=== PATIENT | female | born 1985 | race Caucasian/White ===

== ENCOUNTER 2023-01-23 00:06 | Emergency (ER) | payer MEDICAID ==
[~2023-01-23] VITALS: Ht 170.2 cm; Wt 75.0 kg
[~2023-01-23 00:06] MED LIST: MAGN400C PO; PREN-125 PO
--- NOTE | 2023-01-23 00:11 | NUR ---
LIGHTS OFF, HAVING HER CONCENTRATE ON APPROPRIATE BREATHING. O2 2LNC
[2023-01-23] MEDS ORDERED: LORazepam 2 mg/ml vial IM STA (00:16)
--- NOTE | 2023-01-23 00:17 | NUR ---
DR MENSAH AT BS TO ASSESS PT. IM ATIVAN 2 MG ORDERED.
--- NOTE | 2023-01-23 00:48 | NUR ---
got patient breathing easily through guided imagery and breathing techniques with muscle relaxation and holding non rebreather to face not hooked to oxygen. Pt trying to sleep now. Warmed blankets on pt. Mom at her side.
--- NOTE | 2023-01-23 01:05 | NUR ---
she got up to the bathroom, and now she is sitting EOB with NRB mask. She is trying to self regulate.
[2023-01-23] MEDS ORDERED: metoclopramide 10mg tablet PO ONE (01:40)
[2023-01-23] MEDS ORDERED: LIDOcaine Viscous 15ml cup MM ONE (01:55)
[2023-01-23] MEDS ORDERED: mag hydrox/Alum hydrox/simeth 30ml oral suspension PO ONE (01:55)
[2023-01-23] MEDS ORDERED: famotidine 20mg tablet PO ONE (01:55)
--- NOTE | 2023-01-23 01:57 | NUR ---
she is doing better, but did develop heartburn. Gave her a GI cocktail. Her breathing has returned to normal.
[2023-01-23] MEDS ORDERED: LORazepam 2 mg/ml vial IV ONE (02:05)
[2023-01-23] MEDS ORDERED: diphenhydrAMINE 50 mg/ml inj IV ONE (02:05)
[2023-01-23 02:42] LABS: D-DIMER 0.47 MG/L FEU (0-0.50)
[2023-01-23 02:47] LABS: BASOPHILS % (AUTO) 0.2 % (0-1); EOSINOPHILS % (AUTO) 0.8 % (0-6); HEMATOCRIT 37.9 % (35.0-45.0); LYMPHOCYTES # (AUTO) 2.1 X10'3 (1.1-4.8); LYMPHOCYTES % (AUTO) 35.7 % (21-51); MEAN CORPUSCULAR HEMOGLOBIN 29.5 PG (27.0-31.0); MEAN CORPUSCULAR HGB CONC 34.2 g/dL (33.0-36.5); MEAN CORPUSCULAR VOLUME 86.2 FL (78-98); MEAN PLATELET VOLUME 7.9 FL (7.4-10.4); MONOCYTES # (AUTO) 0.5 X10'3 (0-0.9); MONOCYTES % (AUTO) 7.7 % (2-12); NEUTROPHILS # (AUTO) 3.3 X10'3 (1.8-7.7); NEUTROPHILS % (AUTO) 55.6 % (42-75); PLATELET COUNT 270 X10'3 (140-440); RED CELL DISTRIBUTION WIDTH 13.3 % (11.5-14.5)
[2023-01-23 02:48] LABS: ALANINE AMINOTRANSFERASE 20 U/L (12-78); ALBUMIN 4.3 G/DL (3.4-5.0); ALBUMIN/GLOBULIN RATIO 1.2 (1.1-1.5); ALKALINE PHOSPHATASE 54 IU/L (46-116); ANION GAP 19 (8-16); ASPARTATE AMINO TRANSFERASE 18 U/L (10-37); BILIRUBIN,TOTAL 0.3 MG/DL (0.1-1.0); BLOOD UREA NITROGEN 13 MG/DL (7-18); BUN/CREATININE RATIO 13.5 (10.0-20.0); CALCIUM 10.1 MG/DL (8.5-10.1); CHLORIDE 106 MMOL/L (99-107); CREATININE 0.96 MG/DL (0.40-0.90); GLUCOSE 114 MG/DL (70-104); POTASSIUM 3.2 MMOL/L (3.5-5.1); SODIUM 144 MMOL/L (135-145); TOTAL CARBON DIOXIDE 18.6 MMOL/L (24-32); eGFR 65 ML/MIN
[2023-01-23 02:50] LABS: CLARITY,URINE CLEAR (Clear); COLOR,URINE YELLOW (Yellow); GLUCOSE, URINE NEGATIVE (Neg); KETONES,URINE TRACE mg/dl (Neg); LEUKOCYTE ESTERASE ,URINE NEGATIVE (Neg); NITRITES, URINE NEGATIVE (Neg); OCCULT BLOOD,URINE NEGATIVE (Neg); PH,URINE 6.5 (4.8-8.0); PROTEIN,URINE NEGATIVE (Neg); UROBILINOGEN,URINE 0.2 E.U/dL (0.2-1.0)
[2023-01-23 02:57] LABS: ETHANOL 0.145 GM/DL (0.0-0.010)
[2023-01-23 02:57] LABS: UA COLLECTION TYPE CLN CATCH MIDSTREAM
[2023-01-23] MEDS ORDERED: POTASSIUM BICARB 20meq eff tab 20 MEQ TABLET.EFF PO ONE (03:00)
[2023-01-23] MEDS ORDERED: normal saline 1000ml 1,000 ML IV ONE (03:00)
[2023-01-23 03:05] LABS: URINE AMPHETAMINE SCREEN NEGATIVE (Neg); URINE BARBITUATE SCREEN NEGATIVE (Neg); URINE BENZODIAZEPINES SCREEN NEGATIVE (Neg); URINE CANNABINOID SCREEN NEGATIVE (Neg); URINE COCAINE SCREEN NEGATIVE (Neg); URINE METHADONE SCREEN NEGATIVE (Neg); URINE OPIATE SCREEN NEGATIVE (Neg); URINE PHENCYCLIDINE SCREEN NEGATIVE (Neg)
[2023-01-23 04:01] VITALS: BP 112/72
[2023-01-23 05:02] LABS: URINE HCG NEGATIVE (NEG)
== END 2023-01-23 04:02 | disposition home or self-care (01) ==
LOC: ER 00:07
DX: F41.9 Anxiety disorder, unspecified (principal); Z20.822 Contact with and (suspected) exposure to COVID-19; E86.0 Dehydration; E11.9 Type 2 diabetes mellitus without complications; Z88.5 Allergy status to narcotic agent; Z91.040 Latex allergy status; Z88.8 Allergy status to other drugs, medicaments and biological substances
CPT/HCPCS: 36415; 71045; 80053; 80305; 80320; 81003; 81025; 83880; 84145; 84484; 85025; 85379; 87811; 93005; 96361; 96372; 96374; 96375; 99285; J1200; J2060; J7030

== ENCOUNTER 2023-09-30 08:17 | Emergency (ER) | payer MEDICAID ==
[~2023-09-30] VITALS: Ht 170.2 cm; Wt 100.8 kg
[2023-09-30 08:18] VITALS: TEMP 98.6
[2023-09-30 08:43] LABS: BILIRUBIN,URINE NEGATIVE (Neg); CLARITY,URINE SLIGHTLY CLOUDY (Clear); COLOR,URINE YELLOW (Yellow); GLUCOSE, URINE NEGATIVE (Neg); KETONES,URINE NEGATIVE (Neg); LEUKOCYTE ESTERASE ,URINE NEGATIVE (Neg); NITRITES, URINE NEGATIVE (Neg); OCCULT BLOOD,URINE TRACE-INTACT (Neg); PH,URINE 5.5 (4.8-8.0); PROTEIN,URINE NEGATIVE (Neg); UROBILINOGEN,URINE 0.2 E.U/dL (0.2-1.0)
[2023-09-30 08:44] LABS: URINE HCG NEGATIVE (NEG)
[2023-09-30 08:49] LABS: SQUAMOUS EPITHELIAL CELL,UR MANY /LPF (FEW); UA COLLECTION TYPE CLN CATCH MIDSTREAM
[2023-09-30 08:50] LABS: BACTERIA,URINE 1+ /HPF (Neg); MUCUS STRANDS FEW /LPF (Neg); RBC,URINE 0-2 /HPF (0-2); WBC,URINE 0-4 /HPF (0-4)
[2023-09-30 09:19] LABS: BASOPHILS % (AUTO) 0.1 % (0-1); EOSINOPHILS # (AUTO) 0.2 X10'3 (0-0.9); EOSINOPHILS % (AUTO) 2.3 % (0-6); HEMATOCRIT 37.2 % (35.0-45.0); HEMOGLOBIN 12.5 g/dl (12.0-16.0); LYMPHOCYTES # (AUTO) 1.8 X10'3 (1.1-4.8); LYMPHOCYTES % (AUTO) 27.8 % (21-51); MEAN CORPUSCULAR HEMOGLOBIN 29.5 PG (27.0-31.0); MEAN CORPUSCULAR HGB CONC 33.7 g/dL (33.0-36.5); MEAN CORPUSCULAR VOLUME 87.4 FL (78-98); MEAN PLATELET VOLUME 7.7 FL (7.4-10.4); MONOCYTES # (AUTO) 0.5 X10'3 (0-0.9); MONOCYTES % (AUTO) 7.6 % (2-12); NEUTROPHILS # (AUTO) 4.1 X10'3 (1.8-7.7); NEUTROPHILS % (AUTO) 62.2 % (42-75); PLATELET COUNT 237 X10'3 (140-440); RED BLOOD COUNT 4.26 X10'6 (4.20-5.60); RED CELL DISTRIBUTION WIDTH 12.4 % (11.5-14.5); WHITE BLOOD COUNT 6.5 X10'3 (4.5-11.0)
[2023-09-30] MEDS: ondansetron 4mg rapidly disintigrating tab PO ONE (09:38)
[2023-09-30] MEDS: ketorolac trometh. 30mg/ml inj. IM ONE (09:39)
[2023-09-30] MEDS: normal saline 1000ML IV soln IVB ONE (09:39)
[2023-09-30 09:42] LABS: ALANINE AMINOTRANSFERASE 21 U/L (12-78); ALKALINE PHOSPHATASE 54 IU/L (46-116); ANION GAP 9 (8-16); ASPARTATE AMINO TRANSFERASE 10 U/L (10-37); BILIRUBIN,TOTAL 0.4 MG/DL (0.1-1.0); BLOOD UREA NITROGEN 13 MG/DL (7-18); BUN/CREATININE RATIO 14.4 (10.0-20.0); C-REACTIVE PROTEIN 3.01 MG/DL (0.0-0.5); CALCIUM 9.2 MG/DL (8.5-10.1); CHLORIDE 103 MMOL/L (99-107); GLUCOSE 96 MG/DL (70-104); LIPASE 25 U/L (16-77); POTASSIUM 3.8 MMOL/L (3.5-5.1); SODIUM 139 MMOL/L (135-145); TOTAL CARBON DIOXIDE 26.8 MMOL/L (24-32); TOTAL PROTEIN 8.1 G/DL (6.4-8.2); eCRCL 82 ML/MIN; eGFR 70 ML/MIN
[2023-09-30 09:48] VITALS: BP 119/71; PULSE 88; O2SAT 98
[2023-09-30] MEDS: diphenhydrAMINE 50 mg/ml inj IV ONE (10:23)
[2023-09-30] MEDS: dexamethasone 4mg/ml inj IV SCH (10:24)
[2023-09-30 10:44] VITALS: RESP 17
[2023-09-30] MEDS: acetaminophen 325mg tablet PO ONE (11:17)
== END 2023-09-30 11:23 | disposition home or self-care (01) ==
LOC: ER 08:17
DX: B34.9 Viral infection, unspecified (principal); Z20.822 Contact with and (suspected) exposure to COVID-19; R51.9 Headache, unspecified; R30.0 Dysuria; R53.81 Other malaise; E11.9 Type 2 diabetes mellitus without complications; Z88.5 Allergy status to narcotic agent; Z91.040 Latex allergy status; Z88.8 Allergy status to other drugs, medicaments and biological substances; Z79.899 Other long term (current) drug therapy
CPT/HCPCS: 36415; 71045; 80053; 81001; 81025; 83605; 83690; 84145; 85025; 86140; 87040; 87502; 87503; 87811; 96361; 96372; 96374; 96375; 99284; J1100; J1200; J1885; J7030

== ENCOUNTER 2024-03-06 08:28 | Outpatient (CLI) | payer MEDICAID | END 2024-03-06 23:59 | disposition home or self-care (01) | LOC: RAD 08:28 | PROVIDERS: ATTEND Neuromusculoskeletal Medicine & OMM | DX: G43.011 Migraine without aura, intractable, with status migrainosus (principal) | CPT/HCPCS: 95816 ==

== ENCOUNTER 2024-08-26 00:32 | Emergency (ER) | payer MEDICAID ==
[~2024-08-26] VITALS: Ht 172.7 cm; Wt 102.3 kg
[2024-08-26 00:35] VITALS: BP 135/96; PULSE 126; RESP 32; O2SAT 100
== END 2024-08-26 02:54 | disposition left against medical advice (07) ==
LOC: ER 00:33
DX: F41.9 Anxiety disorder, unspecified (principal); Z91.040 Latex allergy status; Z88.5 Allergy status to narcotic agent; Z88.8 Allergy status to other drugs, medicaments and biological substances; Z53.21 Procedure and treatment not carried out due to patient leaving prior to being seen by health care provider
CPT/HCPCS: 93005

== ENCOUNTER 2024-10-11 17:24 | Emergency (ER) | payer MEDICAID ==
[~2024-10-11] VITALS: Ht 170.2 cm; Wt 101.9 kg
[2024-10-11 17:38] VITALS: BP 135/75; PULSE 99; O2SAT 97
[2024-10-11] MEDS: acetaminophen 325mg tablet PO STA (19:12)
[2024-10-11 19:13] VITALS: RESP 14
[2024-10-11] MEDS: HYDROcodone/acetaminophen 5mg/325mg tablet PO STA (19:13)
[2024-10-11] MEDS ORDERED: HYDR-3965 PO (20:25)
[2024-10-11 20:30] VITALS: TEMP 98.6
== END 2024-10-11 20:37 | disposition home or self-care (01) ==
LOC: ER 17:25
DX: S40.021A Contusion of right upper arm, initial encounter (principal); M25.531 Pain in right wrist; M25.511 Pain in right shoulder; E11.9 Type 2 diabetes mellitus without complications; W01.0XXA Fall on same level from slipping, tripping and stumbling without subsequent striking against object, initial encounter; Y93.89 Activity, other specified; Y92.89 Other specified places as the place of occurrence of the external cause; Y99.8 Other external cause status
CPT/HCPCS: 73030; 73080; 73090; 73110; 99284; A4565

== ENCOUNTER 2024-11-16 22:05 | Emergency (ER) | payer MEDICAID ==
[~2024-11-16] VITALS: Ht 170.2 cm; Wt 105.2 kg
[~2024-11-16 22:05] MED LIST changes: +iohexol 300mg/ml 100ml inj. ONE
[2024-11-16 22:36] LABS: URINE HCG NEGATIVE (NEG)
[2024-11-16 22:52] LABS: BILIRUBIN,URINE NEGATIVE (Neg); CLARITY,URINE CLEAR (Clear); COLOR,URINE YELLOW (Yellow); GLUCOSE, URINE NEGATIVE (Neg); KETONES,URINE TRACE mg/dl (Neg); LEUKOCYTE ESTERASE ,URINE NEGATIVE (Neg); NITRITES, URINE NEGATIVE (Neg); OCCULT BLOOD,URINE NEGATIVE (Neg); PH,URINE 6.5 (4.8-8.0); PROTEIN,URINE NEGATIVE (Neg); UA COLLECTION TYPE CLN CATCH MIDSTREAM; UROBILINOGEN,URINE 0.2 E.U/dL (0.2-1.0)
[2024-11-17 00:08] VITALS: TEMP 98.3
[2024-11-17] MEDS ORDERED: ketorolac trometh 15mg/ml vial 15 MG/ML ML IM ONE (01:00)
[2024-11-17] MEDS: ketorolac trometh 15mg/ml vial 15 MG/ML ML IV ONE (01:24)
[2024-11-17 01:43] LABS: BASOPHILS % (AUTO) 0.4 % (0-1); EOSINOPHILS # (AUTO) 0.1 X10'3 (0-0.9); EOSINOPHILS % (AUTO) 1.5 % (0-6); HEMATOCRIT 36.1 % (35.0-45.0); HEMOGLOBIN 12.1 g/dl (12.0-16.0); LYMPHOCYTES # (AUTO) 3.1 X10'3 (1.1-4.8); LYMPHOCYTES % (AUTO) 46.2 % (21-51); MEAN CORPUSCULAR HEMOGLOBIN 30.2 PG (27.0-31.0); MEAN CORPUSCULAR HGB CONC 33.5 g/dL (33.0-36.5); MEAN CORPUSCULAR VOLUME 90.3 FL (78-98); MEAN PLATELET VOLUME 7.4 FL (7.4-10.4); MONOCYTES # (AUTO) 0.6 X10'3 (0-0.9); MONOCYTES % (AUTO) 8.6 % (2-12); NEUTROPHILS # (AUTO) 2.9 X10'3 (1.8-7.7); NEUTROPHILS % (AUTO) 43.3 % (42-75); PLATELET COUNT 281 X10'3 (140-440); RED BLOOD COUNT 3.99 X10'6 (4.20-5.60); RED CELL DISTRIBUTION WIDTH 14.4 % (11.5-14.5); WHITE BLOOD COUNT 6.7 X10'3 (4.5-11.0)
[2024-11-17] MEDS: morphine 4 MG/ML inj SYRINge IV ONE (01:55)
[2024-11-17] MEDS: ondansetron/PF 4mg/2ml inj IV ONE (02:02)
[2024-11-17 02:13] LABS: ALBUMIN 3.8 G/DL (3.4-5.0); ANION GAP 11 (8-16); BLOOD UREA NITROGEN 23 MG/DL (7-18); CALCIUM 9.2 MG/DL (8.5-10.1); CHLORIDE 102 MMOL/L (99-107); CREATININE 0.92 MG/DL (0.40-0.90); GLUCOSE 89 MG/DL (70-104); POTASSIUM 3.9 MMOL/L (3.5-5.1); SODIUM 137 MMOL/L (135-145); TOTAL CARBON DIOXIDE 23.7 MMOL/L (24-32); eCRCL 79 ML/MIN; eGFR 68 ML/MIN
[2024-11-17] MEDS: LORazepam 0.5 MG tablet PO ONE (02:46)
[2024-11-17] MEDS ORDERED: METH-797 PO (03:09)
[2024-11-17] MEDS: magnesium oxide 400mg tablet PO ONE (03:17)
[2024-11-17] MEDS: LIDOcaine 5% patch TP ONE (03:18)
[2024-11-17] MEDS: tizanidine 4mg tablet PO ONE (03:24)
[2024-11-17 03:31] VITALS: BP 127/73; PULSE 82; RESP 16; O2SAT 97
== END 2024-11-17 03:37 | disposition home or self-care (01) ==
LOC: ER 22:06
DX: M62.830 Muscle spasm of back (principal); E11.9 Type 2 diabetes mellitus without complications; G89.29 Other chronic pain; M54.9 Dorsalgia, unspecified; Z88.5 Allergy status to narcotic agent; Z88.8 Allergy status to other drugs, medicaments and biological substances; Z91.040 Latex allergy status; Z79.899 Other long term (current) drug therapy
CPT/HCPCS: 36415; 74177; 80048; 81003; 81025; 85025; 96374; 96375; 99285; J1885; J2270; J2405; Q9967

== ENCOUNTER 2025-07-03 07:22 | Outpatient (CLI) | payer MEDICAID ==
[2025-07-03] VITALS (21 sets, daily range): BP systolic 114–150; BP diastolic 72–97; PULSE 89–117
[~2025-07-03 07:22] MED LIST changes: +METH-797 PO; -iohexol 300mg/ml 100ml inj. ONE
== END 2025-07-03 23:59 | disposition home or self-care (01) ==
LOC: CARD DIAG 07:22
PROVIDERS: ATTEND Student in an Organized Health Care Education/Training Program
DX: R00.0 Tachycardia, unspecified (principal); R00.2 Palpitations; R55 Syncope and collapse
CPT/HCPCS: 93660